=== PATIENT | female | born 1950 | race Caucasian/White ===

== ENCOUNTER 2023-02-09 16:21 | Emergency (ER) | payer MEDICARE ==
[2023-02-09] MEDS ORDERED: Diphtheria,Pertussis(Acell),Tetanus Vaccine 0.5 ML Syringe IM ONE (18:31)
[2023-02-09] MEDS ORDERED: Bacitracin Oint 1 GM U/D Packet TOP ONE (18:31)
== END 2023-02-09 19:13 | disposition home or self-care (01) ==
LOC: JP.ED 16:21
DX: S01.01XA Laceration without foreign body of scalp, initial encounter (principal); Z88.0 Allergy status to penicillin; Z23 Encounter for immunization; W18.09XA Striking against other object with subsequent fall, initial encounter
CPT/HCPCS: 12032; 70450; 72125; 76377; 90471; 90715; 99283-25